=== PATIENT | male | born 1985 | race Caucasian/White ===

== ENCOUNTER 2019-11-05 16:52 | Emergency (ER) | payer OTHER ==
[~2019-11-05] VITALS: Ht 177.8 cm; Wt 16.9 kg
[2019-11-05] MEDS ORDERED: DEXAMETHASONE 4 MG/ML, 1ML ONE (17:24)
[2019-11-05] MEDS ORDERED: ACETAMINOPHEN 500 MG TABLET ONE (17:29)
[2019-11-05] MEDS ORDERED: DEXAMETHASONE 4 MG/ML, 1ML IVPush ONE (17:30)
[2019-11-05] MEDS ORDERED: AMPICILLIN/SULBACTAM 3 GM in SODIUM CHLORIDE 0.9% 100 ML IV ONE (17:30)
[2019-11-05] MEDS ORDERED: ACETAMINOPHEN 325 MG TABLET PO ONE (17:30)
[2019-11-05] MEDS ORDERED: SODIUM CHLORIDE 0.9% 1,000ML IVBOLUS ONE (17:30)
[2019-11-05] MEDS ORDERED: SODIUM CHLORIDE FLUSH 10ML SYR IVF ONE (17:30)
[2019-11-05] MEDS ORDERED: IBUPROFEN 600 MG TABLET ONE (18:09)
[2019-11-05] MEDS ORDERED: IBUPROFEN 200 MG TABLET PO ONE (18:30)
[2019-11-05] MEDS ORDERED: SODIUM CHLORIDE 0.9%, 500ML IVBOLUS ONE (18:30)
[2019-11-05 18:47] VITALS: BP 136/81
== END 2019-11-05 18:49 | disposition home or self-care (01) ==
LOC: ED 17:25
DX: J03.90 Acute tonsillitis, unspecified (principal); R50.9 Fever, unspecified; R05 Cough; R11.0 Nausea; E11.9 Type 2 diabetes mellitus without complications
CPT/HCPCS: 71045; 87081; 87880; 96374; 99284; J0295; J1100; J7030; J7040

== ENCOUNTER 2021-04-17 10:59 | Emergency (ER) | payer OTHER ==
[~2021-04-17] VITALS: Ht 177.8 cm; Wt 105.5 kg
--- NOTE | 2021-04-17 12:10 | NUR ---
Pt walked back from lobby to room at this time. Steady upon ambulation. No apparent distress noted at this time. Resp even and unlabored. Skin pink, warm and dry. Call light within reach. Will cont to monitor pt.
[2021-04-17] MEDS ORDERED: CYCLOBENZAPRINE 10 MG TABLET PO ONE (13:00)
[2021-04-17] MEDS ORDERED: ACETAMINOPHEN 500 MG TABLET PO ONE (13:00)
[2021-04-17] MEDS ORDERED: KETOROLAC 30 MG/1 ML IM ONE (13:00)
[2021-04-17] MEDS ORDERED: CYCLOBENZAPRINE 10 MG TABLET ONE (13:40)
[2021-04-17] MEDS ORDERED: ACETAMINOPHEN 500 MG TABLET ONE (13:40)
[2021-04-17] MEDS ORDERED: KETOROLAC 30 MG/1 ML ONE (13:40)
--- NOTE | 2021-04-17 13:40 | NUR ---
Pt medicated as ordered for pain.
[2021-04-17 14:40] VITALS: BP 146/85
== END 2021-04-17 14:59 | disposition home or self-care (01) ==
LOC: ED 14:45
DX: U07.1 COVID-19 (principal); J12.82 Pneumonia due to coronavirus disease 2019; S39.012A Strain of muscle, fascia and tendon of lower back, initial encounter; S29.012A Strain of muscle and tendon of back wall of thorax, initial encounter; S16.1XXA Strain of muscle, fascia and tendon at neck level, initial encounter; S70.01XA Contusion of right hip, initial encounter; I10 Essential (primary) hypertension; E11.9 Type 2 diabetes mellitus without complications; V03.99XA Pedestrian with other conveyance injured in collision with car, pick-up truck or van, unspecified whether traffic or nontraffic accident, initial encounter; Y93.89 Activity, other specified; Y92.410 Unspecified street and highway as the place of occurrence of the external cause; Y99.8 Other external cause status
CPT/HCPCS: 71045; 72050; 72110; 73502; 96372; 99284; J1885